=== PATIENT | male | born 1995 | race African-American/Black ===

== ENCOUNTER 2022-03-25 05:57 | Emergency (ER) | payer OTHER ==
[2022-03-25] MEDS ORDERED: Acetaminophen 500 MG TAB ONE (06:30)
[2022-03-25] MEDS ORDERED: Boostrix 0.5 ML (Tdap) VIAL (>/=7 yrs of age) ONE (06:47)
== END 2022-03-25 08:00 ==
LOC: NAV ERS 05:57
DX: S02.2XXA Fracture of nasal bones, initial encounter for closed fracture (principal); S01.81XA Laceration without foreign body of other part of head, initial encounter; K08.89 Other specified disorders of teeth and supporting structures; E03.9 Hypothyroidism, unspecified; I10 Essential (primary) hypertension; G40.909 Epilepsy, unspecified, not intractable, without status epilepticus; Y04.0XXA Assault by unarmed brawl or fight, initial encounter; Z23 Encounter for immunization; Z79.899 Other long term (current) drug therapy
CPT/HCPCS: 12011; 70450; 70486; 90471; 90715